=== PATIENT | female | born 1940 | race Caucasian/White ===

== ENCOUNTER 2024-11-26 15:36 | Inpatient (IN) | payer MEDICARE, OTHER ==
[~2024-11-26] VITALS: Ht 154.9 cm; Wt 48.1 kg
[2024-11-26] MEDS ORDERED: IPRATROPIUM BROMIDE NASAL PRN (20:45)
[2024-11-26 21:00] VITALS: BP 132/95; PULSE 86; RESP 16; TEMP 97.5; O2SAT 95
[2024-11-26] MEDS: MELATONIN 3 MG TABLET PO PRN (22:37)
[2024-11-26] MEDS: ETHYL ALCOHOL 62% ANTISEPTIC NASAL SANITIZER 0.6 ML AMPUL NASAL SCH (22:37)
[2024-11-26] MEDS: DOCUSATE SODIUM 100 MG CAPSULE PO SCH (22:39)
[2024-11-26] MEDS: APIXABAN 5 MG TABLET PO SCH (22:40)
[2024-11-26] MEDS: METOPROLOL TARTRATE 25 MG TABLET PO SCH (22:40)
[2024-11-26] MEDS: SENNOSIDES 8.6 MG TABLET PO SCH (22:41)
[2024-11-26] MEDS: ACETAMINOPHEN 500 MG TABLET PO SCH (22:41)
[2024-11-26] MEDS: CHONDROITIN PO SCH (22:43)
[2024-11-26] MEDS: GLUCOSAMINE PO SCH (22:43)
[2024-11-26 23:02] LABS: APPEARANCE,URINE CLEAR (CLEAR); BILIRUBIN,URINE NEGATIVE (NEGATIVE); COLOR,URINE LIGHT YELLOW (YELLOW); GLUCOSE, URINE (UA) NEGATIVE (NEGATIVE); KETONES,URINE TRACE mg/dL (NEGATIVE); LEUKOCYTE ESTERASE ,URINE TRACE (NEGATIVE); NITRATE,URINE NEGATIVE (NEGATIVE); OCCULT BLOOD,URINE LARGE (NEGATIVE); PROTEIN,URINE NEGATIVE (NEGATIVE); UROBILINOGEN,URINE <=1.0 mg/dL (<=1.0)
[2024-11-26 23:19] LABS: BACTERIA,URINE Few /HPF (None Seen); SQUAMOUS EPITHELIAL CELL,UR Rare /LPF (None Seen)
[2024-11-27] MEDS: ALENDRONATE SODIUM 70 MG TABLET PO SCH (06:07)
[2024-11-27 06:21] LABS: BASOPHILS % (AUTO) 0.6 % (0.0-2.0); EOSINOPHILS % (AUTO) 2.5 % (1.0-6.0); HEMATOCRIT 29.1 % (36-46); HEMOGLOBIN 9.8 g/dL (12.0-16.0); LYMPHOCYTES # (AUTO) 1.2 K/uL (1.0-4.8); LYMPHOCYTES % (AUTO) 17.6 % (22.0-44.0); MEAN CORPUSCULAR HEMOGLOBIN 29.2 pg (26.0-34.0); MEAN CORPUSCULAR HGB CONC 33.7 G/dL (31.0-37.0); MEAN CORPUSCULAR VOLUME 87 fL (80-100); MONOCYTES # (AUTO) 0.7 K/uL (0.1-1.0); MONOCYTES % (AUTO) 10.4 % (2.0-9.0); NEUTROPHILS # (AUTO) 4.8 K/uL (1.8-7.7); NEUTROPHILS % (AUTO) 68.9 % (40.0-70.0); PLATELET COUNT (AUTO) 380 K/uL (150-450); RED BLOOD CELL COUNT(AUTO) 3.35 MIL/uL (4.00-5.20); RED CELL DISTRIBUTION WIDTH 15.7 % (11.5-14.5); WHITE BLOOD COUNT (AUTO) 6.9 K/uL (4.5-11.0)
[2024-11-27 06:34] LABS: ALANINE AMINOTRANSFERASE 23 U/L (12-78); ALBUMIN 2.5 g/dL (3.4-5.0); ALKALINE PHOSPHATASE 64 U/L (46-116); ANION GAP 7 mmol/L (8-16); ASPARTATE AMINOTRANSFERASE 23 U/L (15-37); BILIRUBIN,TOTAL 0.5 mg/dL (0.1-1.0); CALCIUM, TOTAL 8.4 mg/dL (8.8-10.5); CARBON DIOXIDE 28 mmol/L (22-29); CHLORIDE 94 mmol/L (98-107); CREATININE 0.54 mg/dL (0.60-1.30); GLOMERULAR FILTR. RATE CALC > 60 mL/min (>60); GLUCOSE,RANDOM 99 mg/dL (70-110); POTASSIUM 4.1 mmol/L (3.5-5.1); SODIUM SERUM 129 mmol/L (136-145); TOTAL PROTEIN, SERUM 5.8 g/dL (6.4-8.2); UREA NITROGEN, BLOOD 12 mg/dL (7-18)
[2024-11-27 08:00] VITALS: BP 103/91; PULSE 80; RESP 19; TEMP 98.1; O2SAT 98
[2024-11-27] MEDS: MULTIVITAMINS, THERAPEUTIC TABLET PO SCH (08:15)
[2024-11-27] MEDS: POTASSIUM CHLORIDE 10 MEQ ER TABLET PO SCH (08:15)
[2024-11-27] MEDS: OMEPRAZOLE 20 MG CAPSULE PO SCH (08:15)
[2024-11-27 10:59] VITALS: O2SAT 98
[2024-11-27 21:23] VITALS: BP 120/83; PULSE 87; RESP 18; TEMP 97.3; O2SAT 95
[2024-11-28 06:09] VITALS: O2SAT 95
[2024-11-28 08:05] VITALS: BP 130/89; PULSE 83; RESP 19; TEMP 98.4; O2SAT 95
[2024-11-28] MEDS: ACETAMINOPHEN 325 MG TABLET PO PRN (17:19)
[2024-11-28 20:20] VITALS: BP 115/79; PULSE 88; RESP 18; TEMP 97.7; O2SAT 96
[2024-11-28] MEDS: TAMSULOSIN HCL 0.4 MG CAPSULE PO SCH (20:22)
[2024-11-29 00:36] VITALS: O2SAT 96
[2024-11-29 08:13] VITALS: BP 110/72; PULSE 80; RESP 18; TEMP 97.7; O2SAT 96
[2024-11-29 19:50] VITALS: BP 102/78; PULSE 92; RESP 16; TEMP 98.2; O2SAT 96
[2024-11-29 20:30] VITALS: O2SAT 96
[2024-11-30] MEDS: DOCUSATE SODIUM 283 MG/5 ML MINI-ENEMA PR SCH (06:16)
[2024-11-30 08:00] VITALS: BP 114/74; PULSE 75; RESP 19; TEMP 98.4; O2SAT 97
[2024-11-30] MEDS: APIXABAN 5 MG TABLET PO SCH (08:36)
[2024-11-30 20:00] VITALS: BP 107/74; PULSE 84; RESP 18; TEMP 97.9; O2SAT 97
[2024-12-01 08:00] VITALS: BP 124/56; PULSE 81; RESP 17; TEMP 97.5; O2SAT 95
[2024-12-01 20:35] VITALS: BP 116/75; PULSE 80; RESP 18; TEMP 97.3; O2SAT 97
[2024-12-02 09:00] VITALS: BP 122/85; PULSE 73; RESP 18; TEMP 98.2; O2SAT 96
[2024-12-02 20:00] VITALS: BP 92/68; PULSE 86; RESP 18; TEMP 98.1; O2SAT 95
[2024-12-02 22:44] VITALS: O2SAT 95
[2024-12-03 05:50] VITALS: BP 136/88; PULSE 76; RESP 18; TEMP 98.1; O2SAT 97
[2024-12-03 08:00] VITALS: BP 125/80; PULSE 77; RESP 18; TEMP 98.1; O2SAT 97
[2024-12-03 20:00] VITALS: BP 109/74; PULSE 79; RESP 18; TEMP 98.4; O2SAT 97
[2024-12-04 08:00] VITALS: BP 119/86; PULSE 79; RESP 18; TEMP 98.1; O2SAT 96
[2024-12-04 21:07] VITALS: BP 104/80; PULSE 83; RESP 18; TEMP 97.5; O2SAT 97
[2024-12-04 21:08] VITALS: O2SAT 97
[2024-12-05 06:30] LABS: BASOPHILS % (AUTO) 0.8 % (0.0-2.0); EOSINOPHILS % (AUTO) 1.8 % (1.0-6.0); HEMATOCRIT 30.8 % (36-46); HEMOGLOBIN 10.4 g/dL (12.0-16.0); LYMPHOCYTES % (AUTO) 16.1 % (22.0-44.0); MEAN CORPUSCULAR HGB CONC 33.7 G/dL (31.0-37.0); MEAN CORPUSCULAR VOLUME 86 fL (80-100); MONOCYTES # (AUTO) 0.7 K/uL (0.1-1.0); MONOCYTES % (AUTO) 10.9 % (2.0-9.0); NEUTROPHILS # (AUTO) 4.3 K/uL (1.8-7.7); NEUTROPHILS % (AUTO) 70.4 % (40.0-70.0); PLATELET COUNT (AUTO) 550 K/uL (150-450); RED BLOOD CELL COUNT(AUTO) 3.58 MIL/uL (4.00-5.20); RED CELL DISTRIBUTION WIDTH 15.5 % (11.5-14.5); WHITE BLOOD COUNT (AUTO) 6.1 K/uL (4.5-11.0)
[2024-12-05 06:42] LABS: ANION GAP 2 mmol/L (8-16); CALCIUM, TOTAL 8.5 mg/dL (8.8-10.5); CARBON DIOXIDE 32 mmol/L (22-29); CHLORIDE 93 mmol/L (98-107); CREATININE 0.52 mg/dL (0.60-1.30); GLOMERULAR FILTR. RATE CALC > 60 mL/min (>60); GLUCOSE,RANDOM 100 mg/dL (70-110); POTASSIUM 4.7 mmol/L (3.5-5.1); SODIUM SERUM 127 mmol/L (136-145); UREA NITROGEN, BLOOD 10 mg/dL (7-18)
[2024-12-05 08:00] VITALS: BP 114/83; PULSE 76; RESP 18; TEMP 98.1; O2SAT 97
[2024-12-05 13:30] LABS: POTASSIUM,URINE RANDOM 77 mmol/L (12-75); SODIUM,URINE RANDOM 37 mmol/l (20-110)
[2024-12-05 20:00] VITALS: BP 107/67; PULSE 78; RESP 18; TEMP 97.9; O2SAT 96
[2024-12-06] MEDS ORDERED: APIX5TAB PO (04:12)
[2024-12-06] MEDS ORDERED: GLUC1TAB61 PO (04:12)
[2024-12-06] MEDS ORDERED: MULT-660 PO (04:12)
[2024-12-06] MEDS ORDERED: OMEP-148 PO (04:12)
[2024-12-06] MEDS ORDERED: TAMS0.4C94 PO (04:12)
[2024-12-06] MEDS ORDERED: ALEN70TA65 PO (04:12)
[2024-12-06] MEDS ORDERED: METO25 PO (04:12)
[2024-12-06 08:00] VITALS: BP 118/78; PULSE 77; RESP 18; TEMP 98.8; O2SAT 96
[2024-12-06] MEDS: SODIUM CHLORIDE 1 GM TABLET PO SCH ×2 (09:51→16:40)
[2024-12-06] MEDS ORDERED: CELE-146 PO (14:09)
[2024-12-06] MEDS ORDERED: GABA-529 PO (14:09)
[2024-12-06] MEDS ORDERED: FURO20TA4 PO (14:09)
[2024-12-06] MEDS ORDERED: IPRA15SP4 NASAL (14:09)
[2024-12-06 20:05] VITALS: BP 101/66; PULSE 82; RESP 18; TEMP 98; O2SAT 96
[2024-12-06 23:15] VITALS: O2SAT 96
[2024-12-07 07:00] LABS: PHOSPHORUS 3.7 mg/dL (2.5-4.9)
[2024-12-07 07:13] LABS: ANION GAP 5 mmol/L (8-16); CALCIUM, TOTAL 8.5 mg/dL (8.8-10.5); CARBON DIOXIDE 29 mmol/L (22-29); CHLORIDE 98 mmol/L (98-107); CREATININE 0.52 mg/dL (0.60-1.30); GLOMERULAR FILTR. RATE CALC > 60 mL/min (>60); GLUCOSE,RANDOM 100 mg/dL (70-110); POTASSIUM 4.5 mmol/L (3.5-5.1); SODIUM SERUM 132 mmol/L (136-145); UREA NITROGEN, BLOOD 10 mg/dL (7-18)
[2024-12-07 08:00] VITALS: BP 119/91; PULSE 64; RESP 19; TEMP 98.4; O2SAT 96
[2024-12-07 20:13] VITALS: BP 100/76; PULSE 83; RESP 17; TEMP 98.1; O2SAT 95
[2024-12-08 08:00] VITALS: BP 114/81; PULSE 75; RESP 19; TEMP 97.6; O2SAT 97
[2024-12-08 20:00] VITALS: BP 90/61; PULSE 87; RESP 20; TEMP 97.5; O2SAT 98
[2024-12-09 08:00] VITALS: BP 132/86; PULSE 82; RESP 18; TEMP 98.2; O2SAT 96
[2024-12-09 08:56] LABS: ANION GAP 5 mmol/L (8-16); CALCIUM, TOTAL 8.9 mg/dL (8.8-10.5); CARBON DIOXIDE 29 mmol/L (22-29); CHLORIDE 98 mmol/L (98-107); CREATININE 0.53 mg/dL (0.60-1.30); GLOMERULAR FILTR. RATE CALC > 60 mL/min (>60); GLUCOSE,RANDOM 129 mg/dL (70-110); POTASSIUM 4.6 mmol/L (3.5-5.1); SODIUM SERUM 132 mmol/L (136-145); UREA NITROGEN, BLOOD 9 mg/dL (7-18)
[2024-12-09 09:00] VITALS: O2SAT 96
[2024-12-09 20:00] VITALS: BP 104/68; PULSE 87; RESP 20; TEMP 98.1; O2SAT 95
[2024-12-10 08:00] VITALS: BP 130/92; PULSE 82; RESP 18; TEMP 98.1; O2SAT 97
[2024-12-10] MEDS ORDERED: SENN-374 PO (10:03)
[2024-12-10] MEDS ORDERED: OMEP20CA12 PO (10:03)
[2024-12-10] MEDS ORDERED: TAMS0.4C94 PO (10:03)
[2024-12-10] MEDS ORDERED: APIX5TAB PO (10:03)
[2024-12-10] MEDS ORDERED: SODI100067 PO (10:03)
[2024-12-10] MEDS ORDERED: METO25 PO (10:03)
[2024-12-10] MEDS ORDERED: DOCU-385 PO (10:03)
[2024-12-10] MEDS ORDERED: MULT-14 PO (10:03)
[2024-12-10] MEDS ORDERED: [UNRECOGNIZED DRUG - CODE] PO (10:03)
[2024-12-10] MEDS ORDERED: POTA-92 PO (10:03)
[2024-12-10] MEDS ORDERED: ALEN70TA65 PO (10:03)
[2024-12-10 12:45] VITALS: O2SAT 97
[2024-12-10 20:10] VITALS: BP 124/81; PULSE 80; RESP 18; TEMP 97.5; O2SAT 96
[2024-12-10 22:02] VITALS: O2SAT 96
[2024-12-11 07:54] LABS: ANION GAP 2 mmol/L (8-16); CALCIUM, TOTAL 8.5 mg/dL (8.8-10.5); CARBON DIOXIDE 32 mmol/L (22-29); CHLORIDE 99 mmol/L (98-107); CREATININE 0.56 mg/dL (0.60-1.30); GLOMERULAR FILTR. RATE CALC > 60 mL/min (>60); GLUCOSE,RANDOM 91 mg/dL (70-110); POTASSIUM 4.2 mmol/L (3.5-5.1); SODIUM SERUM 133 mmol/L (136-145); UREA NITROGEN, BLOOD 9 mg/dL (7-18)
[2024-12-11 09:15] VITALS: BP 124/81; PULSE 81; RESP 18; TEMP 98.2; O2SAT 95
== END 2024-12-11 13:40 | disposition home health service (06) | DRG 57 ==
LOC: 2WR 18:50
PROVIDERS: ADMIT Physical Medicine & Rehabilitation; ATTEND Physical Medicine & Rehabilitation
DX: I69.351 Hemiplegia and hemiparesis following cerebral infarction affecting right dominant side (principal); E46 Unspecified protein-calorie malnutrition; E22.2 Syndrome of inappropriate secretion of antidiuretic hormone; I82.4Y1 Acute embolism and thrombosis of unspecified deep veins of right proximal lower extremity; R41.89 Other symptoms and signs involving cognitive functions and awareness; M16.11 Unilateral primary osteoarthritis, right hip; Z74.09 Other reduced mobility; I48.0 Paroxysmal atrial fibrillation; I10 Essential (primary) hypertension; M47.812 Spondylosis without myelopathy or radiculopathy, cervical region; M47.816 Spondylosis without myelopathy or radiculopathy, lumbar region; D64.9 Anemia, unspecified; K21.9 Gastro-esophageal reflux disease without esophagitis; I44.7 Left bundle-branch block, unspecified; M81.0 Age-related osteoporosis without current pathological fracture; R33.9 Retention of urine, unspecified; K59.00 Constipation, unspecified; Z96.641 Presence of right artificial hip joint; Z87.891 Personal history of nicotine dependence; Z97.4 Presence of external hearing-aid; Z79.01 Long term (current) use of anticoagulants; Z80.9 Family history of malignant neoplasm, unspecified; Z68.20 Body mass index [BMI] 20.0-20.9, adult
CPT/HCPCS: 80048; 80053; 81001; 83735; 83935; 84100; 84133; 84300; 84443; 85025; 87081; 92507; 92523; 97110; 97112; 97116; 97150; 97163; 97167; 97530; 97535; 99366; 36415-L1; 36415-TC